=== PATIENT | female | born 1935 | race Caucasian/White ===

== ENCOUNTER → 2017-05-29 | Outpatient (CLI) | payer OTHER, BC ==
[~2017-05-29] MED LIST: ACTONEL30 MG OR; ADULT LOW DOSE81 MG OR; CALTRATE PLUS1 EACH OR; CENTRUM TABLET1 TAB; FLAX OIL1000 MG
== END ==
LOC: RAD 05-28 16:29
DX: Z12.31 Encounter for screening mammogram for malignant neoplasm of breast (principal)

== ENCOUNTER → 2018-06-19 | Outpatient (CLI) | payer OTHER, BC | LOC: RAD 02:10 | DX: Z12.31 Encounter for screening mammogram for malignant neoplasm of breast (principal) ==

== ENCOUNTER → 2019-06-24 | Outpatient (CLI) | payer OTHER, BC | LOC: BC 11:05 | DX: Z12.31 Encounter for screening mammogram for malignant neoplasm of breast (principal) ==

== ENCOUNTER → 2020-10-01 | Outpatient (CLI) | payer OTHER, BC | LOC: BC 10:46 | DX: Z12.31 Encounter for screening mammogram for malignant neoplasm of breast (principal) ==

== ENCOUNTER → 2020-10-12 | Outpatient (CLI) | payer OTHER, BC | LOC: BC 11:03 | DX: N63.10 Unspecified lump in the right breast, unspecified quadrant (principal); R92.8 Other abnormal and inconclusive findings on diagnostic imaging of breast ==

== ENCOUNTER → 2020-10-14 | Outpatient (CLI) | payer OTHER, BC ==
--- NOTE | 2020-10-18 17:06 | PATH ---
[facility] [place] [address] PATHOLOGY RPT PROCEDURE Name: MICHAELLE GREENE Room #: REG RAKESH Burch.#: [id number] Admission: 10/14/20 Date of : 31 Discharge: Report #: [id number] Path Case #: [id number] [facility] Accession Number: [id number] . 01 Material submitted: . breast - RIGHT BREAST STEREOSTATIC BIOPSY-FS. Modifiers: right . 01 Clinician provided ICD-10: y . 01 Clinical history: . RIGHT BREAST CALCIFICATIONS . 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 - COARSE CALCIFICATIONS IDENTIFIED IN ASSOCIATION WITH DUCTAL CARCINOMA IN SITU. - Negative for invasion. - Background of fibrocystic changes. (IUV:librarian specialist; 10/18/2020) [facility] 10/18/2020 1628 Local . 02 Comment: [place] and [place] markers are ordered on block A3 and will be resulted in an addendum. . A employee's representative focus was co-reviewed by Dr. Megan Gasca who concurs with my diagnosis. . Findings of this case are telephoned to miss Archibald in our breast center at 2:23 p.m. on 10/18/2020. . (IUV:librarian specialist; 10/18/2020) . 02 Electronically signed: . Sofia Robbins MD, Pathologist NPI- [id number] . 01 Gross description: . Received in formalin labeled "Michaelle Greene". The container is not labeled with the specimen site. Per the requisition, the specimen site is "right breast stereotactic biopsy central". The specimen consists of multiple cylindrical yellow-harris soft tissue cores measuring in aggregate 3.3 x 2.8 x 0.4 cm. The cores are submitted in cassettes A1-A2. Also present in the container is a [place] [address] PATHOLOGY RPT PROCEDURE Name: MICHAELLE GREENE Heather [id number] Admission: 10/14/20 Date of : 31 Discharge: Report #: [id number] Path Case #: [id number] yellow-harris soft tissue cores measuring in aggregate 2.5 x 2.0 x 0.4 cm, which are submitted in A3. The specimen is removed from the patient at 1233 and placed in formalin at 1239 on 10/14/2020. The specimen is removed from formalin at 1230 on 10/17/2020. ([facility] [place]; 10/16/2020) [facility] 10/16/2020 0916 Local . 02 Pathologist provided ICD-10: D05.11, N60.11 . 02 CPT . 855892 Specimen Comment: A courtesy copy of this report has been sent to [phone], [phone] Specimen Comment: [id number] Specimen Comment: Report sent to / DR PHILLIPS Performed at: [address] [facility] [address], [place], [place] [id number] MD Low Ojeda MD Phone: [phone] Performed at: [address] [facility] [id number] MD Sofia Robbins MD Phone: [phone]
== END ==
LOC: ULTRA 10:42
DX: R92.0 Mammographic microcalcification found on diagnostic imaging of breast (principal); D05.11 Intraductal carcinoma in situ of right breast; N60.11 Diffuse cystic mastopathy of right breast; Z79.899 Other long term (current) drug therapy